=== PATIENT | female | born 1985 | race Caucasian/White ===

== ENCOUNTER 2024-05-01 15:49 | Emergency (ER) | payer BC ==
[~2024-05-01] VITALS: Ht 165.1 cm; Wt 116.6 kg
[2024-05-01 15:55] VITALS: BP 118/68; PULSE 96; RESP 22; TEMP 97.3; O2SAT 97
[2024-05-01] MEDS: ALUMINUM HYD/MAG/SIMETHICONE 30 ML UDC PO ONE (16:39)
[2024-05-01 16:55] LABS: BASOPHILS % (AUTO) 0.8 % (0.0-2.0); HEMATOCRIT 41.8 % (36-48); HEMOGLOBIN 13.8 g/dL (12.0-16.0); LYMPHOCYTES # (AUTO) 2.4 K/uL (2.5-16.5); LYMPHOCYTES % (AUTO) 37.4 % (20.5-51.1); MEAN CORPUSCULAR HEMOGLOBIN 29 pg (27-31); MEAN CORPUSCULAR HGB CONC 33 g/dL (33-37); MEAN CORPUSCULAR VOLUME 87.2 fL (80-94); MONOCYTES # (AUTO) 0.7 K/uL (0.8-1.0); MONOCYTES % (AUTO) 10.7 % (1.7-9.3); NEUTROPHILS # (AUTO) 3.3 K/uL (1.8-7.7); NEUTROPHILS % (AUTO) 51.1 % (42.2-75.2); PLATELET COUNT (AUTO) 292 K/uL (140-450); RED BLOOD CELL COUNT(AUTO) 4.79 MIL/uL (4.20-5.40); WHITE BLOOD COUNT (AUTO) 6.4 K/uL (4.8-10.8)
[2024-05-01 17:10] LABS: ANION GAP 14.7 (8-16); CARBON DIOXIDE 22.1 mmol/L (21-32); CREATININE 0.9 mg/dL (0.6-1.3); POTASSIUM 3.8 mmol/L (3.5-5.1)
[2024-05-01 17:19] LABS: ALANINE AMINOTRANSFERASE 37 U/L (12-78); ALBUMIN 3.5 g/dL (3.4-5.0); ALKALINE PHOSPHATASE 110 U/L (50-136); ASPARTATE AMINOTRANSFERASE 24 U/L (15-37); BILIRUBIN,DIRECT 0.1 mg/dL (0.0-0.3); LIPASE 33 U/L (16-77); TOTAL BILIRUBIN 0.4 mg/dL (0.0-1.0); TOTAL PROTEIN, SERUM 7.4 g/dL (6.4-8.2)
[2024-05-01] MEDS ORDERED: OMEP40EC23 PO (17:33)
[2024-05-01] MEDS ORDERED: MAA30 PO (17:33)
== END 2024-05-01 17:46 | disposition home or self-care (01) ==
LOC: MED 15:49
DX: R07.89 Other chest pain (principal); Z88.5 Allergy status to narcotic agent
CPT/HCPCS: 36415; 80048; 80076; 81025; 83690; 84484; 85025; 93005; 99284